=== PATIENT | female | born 1940 | race Two or more races ===

== ENCOUNTER 2017-10-18 19:37 | Inpatient (IN) | payer MEDICARE ==
[~2017-10-18] VITALS: Ht 160 cm; Wt 84.4 kg
[2017-10-18] MEDS: FENTANYL TD PATCH (75MCG/HR) 75 MCG/HR PATCH.TD72 TD SCH (16:00)
[2017-10-18 20:00] VITALS: BP 136/85
[2017-10-18] MEDS ORDERED: MAG HYDROX/AL HYDROX/SIMETH 30 ML UDC PO PRN (20:30)
[2017-10-18] MEDS ORDERED: MAGNESIUM HYDROXIDE 30 ML UDC PO PRN (20:30)
[2017-10-18] MEDS ORDERED: ZOLPIDEM TARTRATE 5 MG TABLET PO PRN (20:30)
[2017-10-18] MEDS ORDERED: OLAN20TA3 PO (22:45)
[2017-10-18] MEDS ORDERED: FURO-145 PO (22:45)
[2017-10-18] MEDS ORDERED: AMLO5TAB7 PO (22:45)
[2017-10-18] MEDS ORDERED: GABA-534 PO (22:45)
[2017-10-18] MEDS ORDERED: LORA2TAB PO (22:45)
[2017-10-18] MEDS ORDERED: CIPR250T4 PO (22:45)
[2017-10-18] MEDS ORDERED: AMYL1CAP58 PO (22:45)
[2017-10-18] MEDS ORDERED: LEVO50TA8 PO (22:45)
[2017-10-18] MEDS ORDERED: MIRT15TA PO (22:45)
[2017-10-18] MEDS ORDERED: [UNRECOGNIZED DRUG - OTHER] PO (22:45)
[2017-10-18] MEDS ORDERED: TRAZ-214 PO (22:45)
[2017-10-18] MEDS ORDERED: PRED20TA PO (22:45)
[2017-10-18] MEDS ORDERED: METO50TA16 PO (22:45)
[2017-10-18] MEDS ORDERED: [UNRECOGNIZED DRUG - OTHER] PO (22:45)
[2017-10-18] MEDS ORDERED: ACYC800T PO (22:45)
[2017-10-18] MEDS ORDERED: TRIM100T PO (23:01)
[2017-10-18] MEDS ORDERED: FENT1PAT5 TP (23:55)
[2017-10-19] MEDS ORDERED: ZOLPIDEM TARTRATE 5 MG TABLET ONE (00:06)
--- NOTE | 2017-10-19 00:18 | NUR ---
PATIENT REQUESTING FOR HER SLEEPING PILL, AMBIEN 5 MG TAB PO GIVEN.
[2017-10-19] MEDS ORDERED: FENTANYL TD PATCH (75MCG/HR) 75 MCG/HR PATCH.TD72 TD SCH (01:00)
[2017-10-19] MEDS ORDERED: FENTANYL TD PATCH (50 MCG/HR) 50 MCG/HR PATCH.TD72 TD SCH (01:00)
--- NOTE | 2017-10-19 01:05 | NUR ---
DURAGESIC PATCH 75 MCG NOT ADMINISTERED, PATIENT HAS A PATCH SEEN ON HER RIGHT UPPER BACK DATED 10/18/2017 AT 1645.
[2017-10-19 06:47] LABS: BASOPHILS % (AUTO) 0.5 % (0.0-2.0); EOSINOPHILS % (AUTO) 1.6 % (0.0-6.0); HEMATOCRIT 44 % (33-45); HEMOGLOBIN 14.5 g/dL (11.5-14.8); LYMPHOCYTES # (AUTO) 2.4 /CMM (0.8-4.8); LYMPHOCYTES % (AUTO) 31.8 % (20.0-44.0); MEAN CORPUSCULAR HGB CONC 33 g/dl (31.0-36.0); MEAN CORPUSCULAR VOLUME 97 fL (82-100); MONOCYTES # (AUTO) 0.5 /CMM (0.1-1.30); MONOCYTES % (AUTO) 6.8 % (2.0-12.0); NEUTROPHILS # (AUTO) 4.4 /CMM (1.8-8.9); NEUTROPHILS % (AUTO) 59.3 % (43.0-81.0); PLATELET COUNT (AUTO) 121 /CMM (150-450); RDW COEFFICIENT OF VARIATION 14.6 (11.5-15.0); RED BLOOD CELL COUNT(AUTO) 4.56 MIL/uL (4.0-5.2); WHITE BLOOD COUNT (AUTO) 7.5 K/uL (4.3-11.0)
[2017-10-19 06:59] LABS: ALANINE AMINOTRANSFERASE 88 U/L (12-78); ALBUMIN 2.7 g/dL (3.4-5.0); ALKALINE PHOSPHATASE 197 U/L (46-116); ASPARTATE AMINOTRANSFERASE 53 U/L (15-37); BILIRUBIN,TOTAL 0.7 mg/dL (0.2-1.0); CALCIUM, SERUM 8.8 mg/dL (8.5-10.1); CARBON DIOXIDE 30 mmol/L (21-32); CHLORIDE 103 mmol/L (98-107); GLUCOSE 169 mg/dL (74-106); SODIUM SERUM 142 mmol/L (136-145); TOTAL PROTEIN, SERUM 6.5 g/dL (6.4-8.2); UREA NITROGEN, BLOOD 16 mg/dL (7-18)
[2017-10-19 07:36] LABS: CREATININE 1.1 mg/dL (0.6-1.3)
[2017-10-19 08:00] VITALS: BP 142/97
[2017-10-19] MEDS: ACYCLOVIR 800 MG TABLET PO SCH ×2 (08:37→16:18)
[2017-10-19] MEDS: LEVOTHYROXINE SODIUM 75 MCG TABLET PO SCH (08:37)
[2017-10-19] MEDS: AMLODIPINE BESYLATE 5 MG TABLET PO SCH (08:38)
[2017-10-19] MEDS: METOPROLOL TARTRATE 50 MG TABLET PO SCH (08:38)
[2017-10-19] MEDS ORDERED: LEVOTHYROXINE SODIUM 50 MCG TABLET PO SCH (09:00)
[2017-10-19 12:07] LABS: CHOLESTEROL 205 mg/dL (<200); HDL CHOLESTEROL 84 mg/dL (40-60); LDL 121 mg/dL (0-99); TRIGLYCERIDES 106 mg/dL (30-150)
[2017-10-19 16:00] VITALS: BP 150/75
[2017-10-19] MEDS: OLANZAPINE 10 MG TABLET PO SCH (16:18)
[2017-10-19 20:00] VITALS: BP 151/87
[2017-10-19] MEDS: TRAZODONE 50 MG TABLET PO SCH (21:38)
[2017-10-19] MEDS: GABAPENTIN 300 MG CAPSULE PO SCH (21:38)
[2017-10-19] MEDS ORDERED: GABAPENTIN 300 MG CAPSULE PO SCH (22:00)
[2017-10-20 08:14] VITALS: BP 135/78
[2017-10-20] MEDS: ACYCLOVIR 800 MG TABLET PO SCH ×2 (08:39→16:49)
[2017-10-20] MEDS: OLANZAPINE 10 MG TABLET PO SCH ×2 (08:40→16:49)
[2017-10-20] MEDS: LEVOTHYROXINE SODIUM 75 MCG TABLET PO SCH (08:40)
[2017-10-20] MEDS: GABAPENTIN 300 MG CAPSULE PO SCH ×2 (08:40→21:15)
[2017-10-20] MEDS: METOPROLOL TARTRATE 50 MG TABLET PO SCH (08:41)
[2017-10-20] MEDS: AMLODIPINE BESYLATE 5 MG TABLET PO SCH (08:41)
[2017-10-20 16:00] VITALS: BP 118/73
[2017-10-20 19:44] VITALS: BP 132/72
[2017-10-20] MEDS: TRAZODONE 50 MG TABLET PO SCH (21:15)
[2017-10-21 08:00] VITALS: BP 141/77
[2017-10-21] MEDS: LEVOTHYROXINE SODIUM 75 MCG TABLET PO SCH (08:23)
[2017-10-21] MEDS: GABAPENTIN 300 MG CAPSULE PO SCH ×2 (08:24→21:30)
[2017-10-21] MEDS: OLANZAPINE 10 MG TABLET PO SCH ×2 (08:24→16:43)
[2017-10-21] MEDS: AMLODIPINE BESYLATE 5 MG TABLET PO SCH (08:24)
[2017-10-21] MEDS: ACYCLOVIR 800 MG TABLET PO SCH ×2 (08:25→16:43)
[2017-10-21] MEDS: METOPROLOL TARTRATE 50 MG TABLET PO SCH (08:25)
--- NOTE | 2017-10-21 13:04 | NUR ---
Initial Discharge Plan: Pt lives in a mobile home, [address] [place] [address] with her and her telephone # is . Upon discharge pt would like to return home to her . Per pt she spoke to her who was going to come to the hospital to pick her up once she discharged. SW will follow up. SW will help form a safe and appropriate discharge plan.
[2017-10-21 15:55] VITALS: BP 148/68
[2017-10-21] MEDS: FENTANYL TD PATCH (75MCG/HR) 75 MCG/HR PATCH.TD72 TD SCH (17:57)
[2017-10-21 19:47] VITALS: BP 121/73
[2017-10-21] MEDS: TRAZODONE 50 MG TABLET PO SCH (21:30)
[2017-10-21] MEDS: ACETAMINOPHEN 325 MG TABLET PO PRN (22:54)
[2017-10-22 08:00] VITALS: BP 158/77
[2017-10-22] MEDS: OLANZAPINE 10 MG TABLET PO SCH ×2 (08:16→17:16)
[2017-10-22] MEDS: LEVOTHYROXINE SODIUM 75 MCG TABLET PO SCH (08:16)
[2017-10-22] MEDS: METOPROLOL TARTRATE 50 MG TABLET PO SCH (08:17)
[2017-10-22] MEDS: AMLODIPINE BESYLATE 5 MG TABLET PO SCH (08:17)
[2017-10-22] MEDS: ACYCLOVIR 800 MG TABLET PO SCH ×2 (08:17→17:16)
[2017-10-22] MEDS: GABAPENTIN 300 MG CAPSULE PO SCH ×2 (08:17→20:56)
--- NOTE | 2017-10-22 15:06 | NUR ---
[id number]: NOTIFIED LILLIE HUGHES ABOUT HEMOGLOBIN A1C IS 7.4 ON 10/19/17. ORDERED MILD SLIDING SCALE. ORDERED CARRIED OUT.
[2017-10-22] MEDS ORDERED: DEXTROSE 50%-WATER 50 ML DISP.SYRIN IV PRN (15:30)
[2017-10-22 16:00] VITALS: BP 152/86
[2017-10-22] MEDS: BLOOD SUGAR DIAGNOSTIC 1 EACH STRIP IN SCH ×2 (17:33→21:24)
[2017-10-22 19:50] VITALS: BP 139/83
[2017-10-22] MEDS: TRAZODONE 50 MG TABLET PO SCH (20:56)
[2017-10-22] MEDS: INSULIN REGULAR, HUMAN 100 UNIT/ML 3 ML VIAL SQ PRN (21:37)
[2017-10-23] MEDS: ACETAMINOPHEN 325 MG TABLET PO PRN (06:19)
[2017-10-23] MEDS: BLOOD SUGAR DIAGNOSTIC 1 EACH STRIP IN SCH ×4 (07:41→22:16)
[2017-10-23] MEDS: ACYCLOVIR 800 MG TABLET PO SCH ×2 (08:33→17:11)
[2017-10-23] MEDS: OLANZAPINE 10 MG TABLET PO SCH ×2 (08:33→17:11)
[2017-10-23] MEDS: GABAPENTIN 300 MG CAPSULE PO SCH ×2 (08:33→21:07)
[2017-10-23] MEDS: LEVOTHYROXINE SODIUM 75 MCG TABLET PO SCH (08:34)
[2017-10-23] MEDS: AMLODIPINE BESYLATE 5 MG TABLET PO SCH (08:35)
[2017-10-23] MEDS: METOPROLOL TARTRATE 50 MG TABLET PO SCH (08:38)
[2017-10-23] MEDS: INSULIN REGULAR, HUMAN 100 UNIT/ML 3 ML VIAL SQ PRN ×3 (08:40→18:41)
--- NOTE | 2017-10-23 08:41 | NUR ---
GPS/RN-NOTES PATIENT BLOOD SUGAR WAS 155MG/DL, 2 UNITS OF R INSULIN GIVEN ORDERED.
[2017-10-23 08:54] VITALS: BP 119/75
--- NOTE | 2017-10-23 14:10 | NUR ---
GPS/RN-NOTES PATIENT BLOOD SUGAR WAS 138 MG/DL, 2 UNITS OF R INSULIN GIVEN ORDERED.
[2017-10-23 16:00] VITALS: BP 100/60
--- NOTE | 2017-10-23 18:44 | NUR ---
GPS/RN-NOTES PATIENT BLOOD SUGAR WAS 171MG/DL, 3 UNITS OF R INSULIN GIVEN ORDERED.
[2017-10-23 20:02] VITALS: BP 106/74
[2017-10-23] MEDS: TRAZODONE 50 MG TABLET PO SCH (21:07)
--- NOTE | 2017-10-23 22:17 | NUR ---
GPS RN NOTES: PATIENT BLOOD SUGAR RESULT WAS 105MG/DL WITH NO INSULIN COVERAGE AT THIS TIME.
[2017-10-24] MEDS ORDERED: LORAZEPAM 1 MG TABLET ONE (02:17)
[2017-10-24] MEDS ORDERED: LORAZEPAM 0.5 MG TABLET ONE (02:32)
[2017-10-24] MEDS: LORAZEPAM 0.5 MG TABLET PO PRN (02:38)
--- NOTE | 2017-10-24 02:42 | NUR ---
GPS RN NOTES: PATIENT IS VERY AGITATED, ANXIOUS AND RESTLESS. VSS. ADMINISTERED ATIVAN 1MG PO ORDERED. WILL CONTINUE TO MONITOR [id number] FOR SAFETY AND BEHAVIOR.
--- NOTE | 2017-10-24 05:11 | NUR ---
GPS RN NOTES: NO MEDS AVAILABLE FROM [facility], CHARGE NURSE FROM [facility]2 OVERRIDE MED AND PULLED OUT ATIVAN 1 MG PO TABLET ORDERED.
[2017-10-24] MEDS: BLOOD SUGAR DIAGNOSTIC 1 EACH STRIP IN SCH ×4 (07:51→21:46)
[2017-10-24 08:39] VITALS: BP 116/56
[2017-10-24] MEDS: LEVOTHYROXINE SODIUM 75 MCG TABLET PO SCH (09:04)
[2017-10-24] MEDS: GABAPENTIN 300 MG CAPSULE PO SCH ×2 (09:04→21:56)
[2017-10-24] MEDS: ACYCLOVIR 800 MG TABLET PO SCH ×2 (09:04→16:39)
[2017-10-24] MEDS: OLANZAPINE 10 MG TABLET PO SCH ×2 (09:04→16:39)
[2017-10-24] MEDS: METOPROLOL TARTRATE 50 MG TABLET PO SCH (09:04)
[2017-10-24] MEDS: AMLODIPINE BESYLATE 5 MG TABLET PO SCH (09:05)
[2017-10-24] MEDS: INSULIN REGULAR, HUMAN 100 UNIT/ML 3 ML VIAL SQ PRN ×3 (09:09→18:22)
[2017-10-24 09:23] VITALS: BP 134/84
[2017-10-24 16:00] VITALS: BP 100/55
[2017-10-24] MEDS: FENTANYL TD PATCH (75MCG/HR) 75 MCG/HR PATCH.TD72 TD SCH (16:54)
[2017-10-24 20:00] VITALS: BP 109/62
--- NOTE | 2017-10-24 21:22 | NUR ---
GPS/RN-CALLED IN REGARDS TO PATIENTS REQUEST TO INCLUDE CREON TO HER MEDS.PER , PATIENT WAS ON THIS MEDICATION BEFORE SHE WAS ADMITTED TO [facility] AND SHE NEEDS TO TAKE IT ACHS. CONSENTED.
[2017-10-24] MEDS: TRAZODONE 50 MG TABLET PO SCH (21:56)
[2017-10-24] MEDS ORDERED: AMYLASE/LIPASE/PROTEASE 1 CAP CAPSULE.DR PO SCH (22:00)
[2017-10-25] MEDS: ACETAMINOPHEN 325 MG TABLET PO PRN ×3 (02:25→21:17)
[2017-10-25 08:00] VITALS: BP 109/59
[2017-10-25] MEDS: BLOOD SUGAR DIAGNOSTIC 1 EACH STRIP IN SCH ×4 (08:38→21:18)
[2017-10-25] MEDS: GABAPENTIN 300 MG CAPSULE PO SCH ×2 (08:40→21:16)
[2017-10-25] MEDS: METOPROLOL TARTRATE 50 MG TABLET PO SCH (08:41)
[2017-10-25] MEDS: ACYCLOVIR 800 MG TABLET PO SCH ×2 (08:41→17:34)
[2017-10-25] MEDS: LEVOTHYROXINE SODIUM 75 MCG TABLET PO SCH (08:41)
[2017-10-25] MEDS: AMLODIPINE BESYLATE 5 MG TABLET PO SCH (08:42)
[2017-10-25] MEDS: INSULIN REGULAR, HUMAN 100 UNIT/ML 3 ML VIAL SQ PRN ×3 (08:43→21:42)
[2017-10-25] MEDS: OLANZAPINE 10 MG TABLET PO SCH ×2 (08:47→17:34)
[2017-10-25] MEDS: LIPASE/PROTEASE/AMYLASE 1 EACH CAPSULE.DR PO SCH ×3 (08:53→17:34)
--- NOTE | 2017-10-25 10:07 | NUR ---
RN NOTES ADMINISTERED TYLENOL 650 MG PO PRN FOR LOWER BACK PAIN 12/15, PER PATIENT REQUEST, CONTINUED MONITORING.
--- NOTE | 2017-10-25 11:58 | NUR ---
THANH contacted pts (2'xs in the am) to inform of pts discharge plan (i.e. pt to discharge tomorrow), however was unable to speak to anyone. A message was left asking for a callback.
[2017-10-25] MEDS ORDERED: LIPASE/PROTEASE/AMYLASE 1 EACH CAPSULE.DR PO SCH (13:00)
[2017-10-25 15:56] VITALS: BP 119/73
[2017-10-25 20:00] VITALS: BP 120/72
[2017-10-25] MEDS: TRAZODONE 50 MG TABLET PO SCH (21:17)
--- NOTE | 2017-10-25 23:20 | NUR ---
GPS RN NOTE: PATIENT IS C/O PAIN ON HER LOWER BACK, TYLENOL 650MG WAS GIVEN AND NOT EFFECTIVE, NOTIFIED EPIC UNIT REACTOR OPERATOR DR. LAZO VIA ANSWERING SERVICE. AWAITING CALL BACK. Addendum: 10/26/17 at 0119 by SENA VICENTE II, RN PAIN LEVEL 8/10 SHARP PAIN ON HER LOWER BACK
--- NOTE | 2017-10-25 23:25 | NUR ---
GPS RN NOTE: WARM PACK APPLIED ON LOWER BACK AND PATIENT VERBALIZED RELIEF AND ACKNOWLEDGED THE INTERVENTION. WILL CONTINUE TO MONITOR [id number] FOR SAFETY
[2017-10-26] MEDS: LORAZEPAM 0.5 MG TABLET PO PRN (01:02)
[2017-10-26 08:17] VITALS: BP 141/62
[2017-10-26] MEDS: BLOOD SUGAR DIAGNOSTIC 1 EACH STRIP IN SCH ×2 (08:23→12:50)
[2017-10-26] MEDS: INSULIN REGULAR, HUMAN 100 UNIT/ML 3 ML VIAL SQ PRN (08:25)
[2017-10-26] MEDS: ACYCLOVIR 800 MG TABLET PO SCH (08:31)
[2017-10-26] MEDS: LIPASE/PROTEASE/AMYLASE 1 EACH CAPSULE.DR PO SCH ×2 (08:31→12:50)
[2017-10-26 08:32] VITALS: BP 141/62
[2017-10-26] MEDS: METOPROLOL TARTRATE 50 MG TABLET PO SCH (08:32)
[2017-10-26] MEDS: OLANZAPINE 10 MG TABLET PO SCH (08:32)
[2017-10-26] MEDS: GABAPENTIN 300 MG CAPSULE PO SCH (08:32)
[2017-10-26] MEDS: AMLODIPINE BESYLATE 5 MG TABLET PO SCH (08:32)
[2017-10-26] MEDS: LEVOTHYROXINE SODIUM 75 MCG TABLET PO SCH (08:32)
--- NOTE | 2017-10-26 12:30 | NUR ---
GPS/ADVERTISING CLERK ORDERS RECEIVED . NO SI OR HI AT THE TIME OF D/C. EXIT CARE INSTRUCTIONS AND PRESCRIPTIONS GIVEN AND UNDERSTOOD. PT REFUSED PICTURES ON DISCHARGE. BELONGINGS RETURNED. PT DISCHARGED HOME WITH HER [place] VIA PRIVATE CAR.
--- NOTE | 2017-10-28 15:30 | NUR ---
Discharge Plan: Patient was discharged to [address] [place] [address]. [address] [place] [address] via private transportation @ 1 pm. Pts , [facility] will be picking pt up. Pt has been notified and is in agreement. The following physician referrals were provided: Psychiatrist: Keenan hendrix, [address] [facility] [id number]; and Operations Asst: Dr. Mortensen, [address], [facility] [id number]; . Pt was in agreement with discharge plan.
== END 2017-10-26 12:30 | disposition home or self-care (01) | DRG 885 ==
LOC: GPS 19:37
PROVIDERS: ADMIT Psychiatry & Neurology Psychiatry; ATTEND Internal Medicine
DX: F31.64 Bipolar disorder, current episode mixed, severe, with psychotic features (principal); E11.65 Type 2 diabetes mellitus with hyperglycemia; G62.9 Polyneuropathy, unspecified; F03.90 Unspecified dementia, unspecified severity, without behavioral disturbance, psychotic disturbance, mood disturbance, and anxiety; E03.9 Hypothyroidism, unspecified; I10 Essential (primary) hypertension; F41.9 Anxiety disorder, unspecified; G89.4 Chronic pain syndrome; F29 Unspecified psychosis not due to a substance or known physiological condition; B00.9 Herpesviral infection, unspecified; K58.9 Irritable bowel syndrome, unspecified; Z91.14 Patient's other noncompliance with medication regimen
CPT/HCPCS: 36415; 80053-TC; 80061-TC; 82962-TC; 85025-TC; 87081-TC; J1815